=== PATIENT | female | born 1970 | race Native Hawaiian/Other Pacific Islander ===

== ENCOUNTER 2021-12-09 08:26 | Outpatient (CLI) | payer OTHER ==
[~2021-12-09 08:26] MED LIST: ALBUTEROL0.083 % IN; ALPR1TAB61 PO; BENADRYL ALG OR; CELEXA10 MG PO; CELEXA20 MG PO; GABA300C2 PO; HYDR-2748 PO; MUCINEX600 MG OR; PRAVACHOL20 MG PO; PRILOSEC40 MG PO; PROM25TA52 PO; SYNTHROID150 MCG PO; SYNTHROID300 MCG PO; XANAX XR1 MG PO; XANAX1 MG PO; Z-PAK PO; ZANTAC 75 PO
== END 2021-12-09 19:22 | disposition home or self-care (01) ==
LOC: CT 08:26
PROVIDERS: ATTEND Internal Medicine Endocrinology, Diabetes & Metabolism
DX: M53.1 Cervicobrachial syndrome (principal); M54.2 Cervicalgia; R13.19 Other dysphagia

== ENCOUNTER 2022-10-12 08:00 | Outpatient (CLI) | payer OTHER | END 2022-10-12 19:10 | disposition home or self-care (01) | LOC: CT 08:00 | PROVIDERS: ATTEND Internal Medicine Endocrinology, Diabetes & Metabolism | DX: M54.2 Cervicalgia (principal) ==